=== PATIENT | female | born 1935 | race Caucasian/White ===

== ENCOUNTER 2019-04-15 11:44 | Inpatient (IN) | payer MEDICAID, OTHER ==
[~2019-04-15] VITALS: Ht 142.2 cm; Wt 40.8 kg
[2019-04-15] MEDS ORDERED: ONDANSETRON HCL 4MG/2ML INJ IV STA (12:22)
[2019-04-15] MEDS ORDERED: SODIUM CHLORIDE 0.9% 1000ML BAG (SEPSIS BOLUS) IV ONE (12:30)
[2019-04-15] MEDS ORDERED: FAMOTIDINE 20MG/2ML VIAL IV ONE (12:30)
[2019-04-15 13:03] LABS: BASOPHILS % 0.8 % (0.0-2.0); EOSINOPHILS % 0.7 % (0.0-5.0); HEMATOCRIT. 39.5 % (36.0-48.0); HEMOGLOBIN. 12.8 g/dL (12.0-16.0); LYMPHOCYTES % 18.5 % (20.0-50.0); MEAN CORPUSCULAR HEMOGLOBIN 26.9 pg (28.0-32.0); MEAN CORPUSCULAR VOLUME 83.4 fL (81.0-99.0); MEAN PLATELET VOLUME 9.1 fl (7.4-10.4); MONOCYTES % 6.8 % (2.0-8.0); NEUTROPHILS % 73.2 % (40.0-76.0); PLATELET 161 x1000/uL (130-400); RED BLOOD CELL COUNT 4.74 mill/uL (4.2-5.4); RED CELL DISTRIBUTION WIDTH 17.9 % (11.6-14.6)
[2019-04-15 13:04] LABS: CHLORIDE 111 mEq/L (98-107)
[2019-04-15 13:06] LABS: PROTHROMBIN TIME 10.5 sec (9.6-11.0)
[2019-04-15 14:50] LABS: CLARITY URINE CLOUDY (CLEAR); COLOR URINE DARK YELLOW (YELLOW); KETONES URINE NEGATIVE (NEGATIVE); LEUKOCYTE ESTERASE URINE 1+ (NEGATIVE); NITRITE URINE NEGATIVE (NEGATIVE); OCCULT BLOOD URINE NEGATIVE (NEGATIVE); PROTEIN URINE NEGATIVE (NEGATIVE); SPECIFIC GRAVITY URINE 1.023 (1.005-1.030)
[2019-04-15] MEDS ORDERED: CEFTRIAXONE 1 G PREMIX 50 ML IV ONE (15:15)
[2019-04-15] MEDS ORDERED: ACETAMINOPHEN 650MG SUPP PR PRN (17:30)
[2019-04-15] MEDS ORDERED: ONDANSETRON HCL 4MG/2ML INJ IV PRN (17:30)
[2019-04-15] MEDS: DEXT 5%/0.45% NACL 1000ML 1,000 ML IV SCH (17:30)
[2019-04-15] MEDS ORDERED: ENOXAPARIN 40MG/0.4ML SYR SUBCUT SCH (17:30)
[2019-04-15] MEDS ORDERED: CLONIDINE 0.1MG TABLET PO PRN (17:30)
[2019-04-15 20:30] VITALS: BP 125/71
[2019-04-16] MEDS: ENOXAPARIN 30MG/0.3ML SYR SUBCUT SCH ×2 (00:45→22:34)
[2019-04-16] MEDS: DEXT 5%/0.45% NACL 1000ML 1,000 ML IV SCH (06:50)
[2019-04-16 07:04] LABS: CHLORIDE 111 mEq/L (98-107)
[2019-04-16 07:13] LABS: BASOPHILS % 0.7 % (0.0-2.0); EOSINOPHILS % 1.6 % (0.0-5.0); HEMATOCRIT. 35.6 % (36.0-48.0); HEMOGLOBIN. 11.7 g/dL (12.0-16.0); LYMPHOCYTES % 21.6 % (20.0-50.0); MEAN CORPUSCULAR HEMOGLOBIN 27.4 pg (28.0-32.0); MEAN CORPUSCULAR VOLUME 83.4 fL (81.0-99.0); MEAN PLATELET VOLUME 9.8 fl (7.4-10.4); MONOCYTES % 7.1 % (2.0-8.0); PLATELET 131 x1000/uL (130-400); RED BLOOD CELL COUNT 4.27 mill/uL (4.2-5.4); RED CELL DISTRIBUTION WIDTH 17.9 % (11.6-14.6)
[2019-04-16 08:00] VITALS: BP 122/59
[2019-04-16] MEDS ORDERED: LORAZEPAM 2MG/ML CPJ IV PRN (10:00)
[2019-04-16] MEDS ORDERED: POTASSIUM CHLORIDE 20MEQ TABLET SR PO NR (10:45)
[2019-04-16] MEDS ORDERED: KCL 20MEQ/100ML PREMIX 100 ML IV SCH (11:00)
[2019-04-16] MEDS ORDERED: NITROFURANTOIN 100MG M/M CAPSULE PO SCH (11:00)
[2019-04-16 12:00] VITALS: BP 127/68
[2019-04-16] MEDS: NYSTATIN/TRIAMCIN CREAM 15GM TOP SCH ×2 (14:42→16:32)
[2019-04-16 16:00] VITALS: BP 149/79
[2019-04-16] MEDS ORDERED: CEFTRIAXONE 1 G PREMIX 50 ML IV SCH (16:00)
[2019-04-16] MEDS: SULFAMETHOXAZOLE/TRIMETHOPRIM 400/80MG TAB PO SCH (16:32)
[2019-04-16 20:00] VITALS: BP 130/72
[2019-04-17] VITALS: BP 128/79
[2019-04-17 04:00] VITALS: BP 132/72
[2019-04-17 08:00] VITALS: BP 135/79
[2019-04-17] MEDS: NYSTATIN/TRIAMCIN CREAM 15GM TOP SCH ×3 (09:53→17:00)
[2019-04-17] MEDS: SULFAMETHOXAZOLE/TRIMETHOPRIM 400/80MG TAB PO SCH ×2 (09:53→17:00)
[2019-04-17 12:00] VITALS: BP 145/71
[2019-04-17 16:00] VITALS: BP 138/79
[2019-04-17 20:00] VITALS: BP 130/77
[2019-04-18] VITALS: BP 139/68
[2019-04-18] MEDS: ENOXAPARIN 30MG/0.3ML SYR SUBCUT SCH ×2 (00:07→22:31)
[2019-04-18 04:00] VITALS: BP 156/93
[2019-04-18 08:00] VITALS: BP 152/86
[2019-04-18] MEDS: NYSTATIN/TRIAMCIN CREAM 15GM TOP SCH ×3 (09:42→17:59)
[2019-04-18] MEDS: SULFAMETHOXAZOLE/TRIMETHOPRIM 400/80MG TAB PO SCH ×2 (09:42→17:59)
[2019-04-18 12:00] VITALS: BP 120/73
[2019-04-18 16:00] VITALS: BP 110/64
[2019-04-18 20:00] VITALS: BP 125/75
[2019-04-18] MEDS: LORAZEPAM 2MG/ML CPJ IM PRN (22:32)
[2019-04-19 04:00] VITALS: BP 123/71
[2019-04-19] MEDS: LORAZEPAM 2MG/ML CPJ IM PRN ×2 (06:47→23:04)
[2019-04-19 08:00] VITALS: BP 127/73
[2019-04-19] MEDS: NYSTATIN/TRIAMCIN CREAM 15GM TOP SCH ×3 (08:50→17:06)
[2019-04-19] MEDS: SULFAMETHOXAZOLE/TRIMETHOPRIM 400/80MG TAB PO SCH ×2 (08:50→17:02)
[2019-04-19 12:00] VITALS: BP_SYST 101; BP_SYST 130; BP_DIAS 68; BP_DIAS 72
[2019-04-19 16:00] VITALS: BP 130/72
[2019-04-19 20:00] VITALS: BP 112/70
[2019-04-19] MEDS: ENOXAPARIN 30MG/0.3ML SYR SUBCUT SCH (21:15)
[2019-04-20] VITALS: BP 128/73
[2019-04-20 04:00] VITALS: BP_SYST 118; BP_SYST 128; BP_DIAS 78
[2019-04-20 08:00] VITALS: BP_SYST 127; BP_SYST 146; BP_DIAS 65; BP_DIAS 76
[2019-04-20] MEDS: NYSTATIN/TRIAMCIN CREAM 15GM TOP SCH ×3 (08:43→17:55)
[2019-04-20] MEDS: SULFAMETHOXAZOLE/TRIMETHOPRIM 400/80MG TAB PO SCH ×2 (08:43→17:55)
[2019-04-20 12:00] VITALS: BP 104/59
[2019-04-20 16:00] VITALS: BP 103/58
[2019-04-20 20:00] VITALS: BP 96/49
[2019-04-20] MEDS: ENOXAPARIN 30MG/0.3ML SYR SUBCUT SCH (20:50)
[2019-04-20] MEDS: LORAZEPAM 2MG/ML CPJ IM PRN (20:50)
[2019-04-21] VITALS: BP 126/60
[2019-04-21 04:00] VITALS: BP 97/63
[2019-04-21 08:00] VITALS: BP 120/62
[2019-04-21] MEDS: SULFAMETHOXAZOLE/TRIMETHOPRIM 400/80MG TAB PO SCH ×2 (08:59→17:31)
[2019-04-21] MEDS: NYSTATIN/TRIAMCIN CREAM 15GM TOP SCH ×3 (08:59→17:31)
[2019-04-21 12:00] VITALS: BP 101/60
[2019-04-21 16:00] VITALS: BP 123/63
[2019-04-21 20:00] VITALS: BP 122/78
[2019-04-21] MEDS: ENOXAPARIN 30MG/0.3ML SYR SUBCUT SCH (21:34)
[2019-04-22] VITALS: BP 118/58
[2019-04-22] MEDS: LORAZEPAM 2MG/ML CPJ IM PRN ×4 (00:27→23:39)
[2019-04-22 04:00] VITALS: BP 115/58
[2019-04-22 08:00] VITALS: BP 105/63
[2019-04-22] MEDS ORDERED: LACTULOSE 20G/30ML UDC PO PRN (09:00)
[2019-04-22] MEDS: NYSTATIN/TRIAMCIN CREAM 15GM TOP SCH ×3 (09:17→17:23)
[2019-04-22] MEDS: SULFAMETHOXAZOLE/TRIMETHOPRIM 400/80MG TAB PO SCH (09:28)
[2019-04-22 12:00] VITALS: BP 121/61
[2019-04-22] MEDS ORDERED: NA PHOS,M-B/NA PHOS,DI-BA ENEMA 118ML PR PRN (13:00)
[2019-04-22] MEDS: DOCUSATE SODIUM 100MG CAPSULE PO SCH ×2 (13:14→17:25)
[2019-04-22 16:00] VITALS: BP 117/70
[2019-04-22 20:00] VITALS: BP 104/57
[2019-04-22] MEDS: ENOXAPARIN 30MG/0.3ML SYR SUBCUT SCH (22:01)
[2019-04-23] VITALS: BP 100/67
[2019-04-23 04:00] VITALS: BP 118/81
[2019-04-23] MEDS: LORAZEPAM 2MG/ML CPJ IM PRN ×2 (07:42→17:41)
[2019-04-23 08:00] VITALS: BP 122/92
[2019-04-23] MEDS ORDERED: NYSTATIN/TRIAMCIN OINT 15GM TOP SCH (09:00)
[2019-04-23] MEDS: DOCUSATE SODIUM 100MG CAPSULE PO SCH ×2 (09:00→17:36)
[2019-04-23 12:00] VITALS: BP 110/67
[2019-04-23 16:00] VITALS: BP 115/72
[2019-04-23 20:00] VITALS: BP 114/85
[2019-04-23] MEDS: ENOXAPARIN 30MG/0.3ML SYR SUBCUT SCH (21:48)
[2019-04-24] VITALS: BP 118/69
[2019-04-24] MEDS ORDERED: LORAZEPAM 2MG/ML CPJ IM PRN (01:15)
[2019-04-24 04:00] VITALS: BP 104/65
[2019-04-24 08:00] VITALS: BP 117/68
[2019-04-24] MEDS: DOCUSATE SODIUM 100MG CAPSULE PO SCH ×2 (09:12→17:00)
[2019-04-24 12:00] VITALS: BP 109/60
[2019-04-24 12:43] LABS: HEMATOCRIT 37.2 % (36.0-48.0); MEAN CORPUSCULAR HEMOGLOBIN 26.9 pg (28.0-32.0); MEAN CORPUSCULAR VOLUME 83.4 fL (81.0-99.0); PLATELET 186 x1000/uL (130-400); RED BLOOD CELL COUNT 4.46 mill/uL (4.2-5.4); RED CELL DISTRIBUTION WIDTH 18.1 % (11.6-14.6)
[2019-04-24 12:56] LABS: CHLORIDE 105 mEq/L (98-107)
[2019-04-24 16:00] VITALS: BP 98/62
[2019-04-24 20:00] VITALS: BP 107/68
[2019-04-24] MEDS: ENOXAPARIN 30MG/0.3ML SYR SUBCUT SCH (20:14)
[2019-04-25] VITALS: BP 122/75
[2019-04-25 04:00] VITALS: BP 136/71
[2019-04-25] MEDS: LORAZEPAM 2MG/ML CPJ IM PRN ×2 (07:34→22:59)
[2019-04-25] MEDS: DOCUSATE SODIUM 100MG CAPSULE PO SCH ×2 (09:00→17:00)
[2019-04-25 20:00] VITALS: BP 102/67
[2019-04-25] MEDS: ENOXAPARIN 30MG/0.3ML SYR SUBCUT SCH (22:58)
[2019-04-26] VITALS: BP 97/62
[2019-04-26 04:00] VITALS: BP 107/69
[2019-04-26 08:00] VITALS: BP 110/62
[2019-04-26] MEDS: DOCUSATE SODIUM 100MG CAPSULE PO SCH ×2 (08:04→17:47)
[2019-04-26] MEDS: LORAZEPAM 2MG/ML CPJ IM PRN (10:36)
[2019-04-26 12:00] VITALS: BP 132/72
[2019-04-26 16:00] VITALS: BP 96/56
[2019-04-26 20:00] VITALS: BP 110/65
[2019-04-26] MEDS: ENOXAPARIN 30MG/0.3ML SYR SUBCUT SCH (21:33)
[2019-04-27] VITALS: BP 112/60
[2019-04-27 04:00] VITALS: BP 129/74
[2019-04-27] MEDS: LORAZEPAM 2MG/ML CPJ IM PRN ×2 (05:00→16:46)
[2019-04-27] MEDS: DOCUSATE SODIUM 100MG CAPSULE PO SCH ×2 (09:37→17:00)
[2019-04-27 20:00] VITALS: BP 119/79
[2019-04-27] MEDS: ENOXAPARIN 30MG/0.3ML SYR SUBCUT SCH (21:41)
[2019-04-28] VITALS: BP 126/68
[2019-04-28 04:00] VITALS: BP 132/79
[2019-04-28] MEDS: LORAZEPAM 2MG/ML CPJ IM PRN (04:11)
[2019-04-28 08:00] VITALS: BP 142/86
[2019-04-28] MEDS: DOCUSATE SODIUM 100MG CAPSULE PO SCH ×2 (09:27→18:16)
[2019-04-28 12:00] VITALS: BP 112/69
[2019-04-28 14:31] LABS: VITAMIN B12 SERUM 378 pg/mL (211-911)
[2019-04-28 16:00] VITALS: BP 94/54
[2019-04-28] MEDS ORDERED: ZOLPIDEM TARTRATE 5MG TABLET PO PRN (19:45)
[2019-04-28 20:00] VITALS: BP 104/62
[2019-04-28] MEDS: ENOXAPARIN 30MG/0.3ML SYR SUBCUT SCH (21:13)
[2019-04-29] VITALS: BP 103/68
[2019-04-29 04:00] VITALS: BP 105/59
[2019-04-29 08:00] VITALS: BP 131/72
[2019-04-29] MEDS: DOCUSATE SODIUM 100MG CAPSULE PO SCH ×2 (09:20→16:45)
[2019-04-29 11:56] VITALS: BP 104/60
[2019-04-29 16:00] VITALS: BP 115/67
[2019-04-29 17:09] VITALS: BP 115/67
[2019-04-29] MEDS ORDERED: ATORVASTATIN CALCIUM 10MG TABLET PO SCH (21:00)
== END 2019-04-29 20:30 | disposition home or self-care (01) | DRG 249 ==
LOC: ER 11:44 → 6EST 15:58 → EDBEDREQSVC 16:01 → EDBEDREQ 16:01 → ENRESERV 16:45
PROVIDERS: ADMIT Hospitalist; ATTEND Hospitalist
DX: K52.9 Noninfective gastroenteritis and colitis, unspecified (principal); E43 Unspecified severe protein-calorie malnutrition; F03.91 Unspecified dementia, unspecified severity, with behavioral disturbance; I71.2 Thoracic aortic aneurysm, without rupture; N39.0 Urinary tract infection, site not specified; Z74.01 Bed confinement status; Z68.20 Body mass index [BMI] 20.0-20.9, adult; Z90.710 Acquired absence of both cervix and uterus
CPT/HCPCS: 36415; 71045; 74176; 80048; 81003; 82607; 83605; 83880; 84134; 84145; 84443; 84484; 85027; 92610; 93005; 93970; 99285; A6261; J0696; J1650; J2060; J2405; J3480; J3490; J7030

== ENCOUNTER 2019-12-20 17:25 | Emergency (ER) | payer MEDICAID ==
[~2019-12-20] VITALS: Ht 162.6 cm; Wt 44.0 kg
[2019-12-20] MEDS ORDERED: KETOROLAC 15MG/ML VIAL IV ONE (17:45)
[2019-12-20] MEDS ORDERED: SODIUM CHLORIDE 0.9% 500 ML IV ONE (17:45)
[2019-12-20 18:28] LABS: CHLORIDE 105 mEq/L (98-107)
[2019-12-20 18:33] LABS: INR 0.9; PROTHROMBIN TIME 10.3 sec (9.6-11.0)
[2019-12-20 18:38] LABS: HEMATOCRIT. 40.6 % (36.0-48.0); HEMOGLOBIN. 13.1 g/dL (12.0-16.0); MEAN CORPUSCULAR HEMOGLOBIN 26.5 pg (28.0-32.0); MEAN CORPUSCULAR VOLUME 81.9 fL (81.0-99.0); MEAN PLATELET VOLUME 9.4 fl (7.4-10.4); PLATELET 123 x1000/uL (130-400); RED BLOOD CELL COUNT 4.96 mill/uL (4.2-5.4); RED CELL DISTRIBUTION WIDTH 16.3 % (11.6-14.6)
[2019-12-20 19:01] LABS: PLATELET ESTIMATE SLIGHTLY DECREASED
[2019-12-20] MEDS ORDERED: MAGNESIUM CITRATE 300ML SOLUTION PO ONE (19:30)
[2019-12-20 21:34] VITALS: BP 160/54
== END 2019-12-20 21:48 | disposition home or self-care (01) ==
LOC: ER 17:25
DX: K59.00 Constipation, unspecified (principal); R10.31 Right lower quadrant pain; Z90.710 Acquired absence of both cervix and uterus
CPT/HCPCS: 36415; 74176; 80053; 83690; 84484; 85025; 85610; 93005; 96374; 99285; J1885; J7040

== ENCOUNTER 2021-04-03 17:06 | Emergency (ER) | payer MEDICAID ==
[~2021-04-03] VITALS: Ht 149.9 cm; Wt 45.0 kg
[2021-04-03] MEDS ORDERED: CEPHALEXIN 250MG CAPSULE PO ONE (18:00)
[2021-04-03] MEDS ORDERED: SULFAMETHOXAZOLE/TRIMETHOPRIM 800/160MG TABLET PO ONE (18:00)
[2021-04-03] MEDS ORDERED: TETRACAINE 0.5% OPHTH DROPS 4ML RIGHTEYE ONE (18:00)
[2021-04-03] MEDS ORDERED: FLUORESCEIN SODIUM 1MG/STRIP RIGHTEYE ONE (18:00)
[2021-04-03] MEDS ORDERED: CIPROFLOXACIN 0.3% OPHTH SOLN 2.5ML RIGHTEYE ONE (18:00)
[2021-04-03] MEDS ORDERED: SULF1TAB48 MT (19:12)
[2021-04-03] MEDS ORDERED: LEVO5DRO20 RIGHTEYE (19:12)
[2021-04-03] MEDS ORDERED: CEPH250C2 MT (19:12)
[2021-04-03 19:19] VITALS: BP 128/74
== END 2021-04-03 19:29 | disposition home or self-care (01) ==
LOC: ER 17:06
DX: H57.89 Other specified disorders of eye and adnexa (principal); F03.90 Unspecified dementia, unspecified severity, without behavioral disturbance, psychotic disturbance, mood disturbance, and anxiety; Z90.710 Acquired absence of both cervix and uterus
CPT/HCPCS: 99284

== ENCOUNTER 2022-02-20 12:27 | Emergency (ER) | payer MEDICAID, OTHER ==
[~2022-02-20] VITALS: Ht 152.4 cm; Wt 68.0 kg
[~2022-02-20 12:27] MED LIST: CEPH250C2 MT; LEVO5DRO20 RIGHTEYE; SULF1TAB48 MT
[2022-02-20 12:52] VITALS: BP 144/99
[2022-02-20] MEDS ORDERED: ONDANSETRON HCL 4MG/2ML INJ IV STA (15:05)
[2022-02-20] MEDS ORDERED: MORPHINE SULFATE 4 MG/ML CPJ (NOT FOR IM USE) IV STA (15:05)
[2022-02-20] MEDS ORDERED: SODIUM CHLORIDE 0.9% 1,000 ML IV ONE (15:15)
== END 2022-02-20 17:04 | disposition left against medical advice (07) ==
LOC: ER 12:27 → CANBEDREQ 21:28
DX: M79.604 Pain in right leg (principal)
CPT/HCPCS: 99281; J7030; J2270; J2405